=== PATIENT | female | born 1990 | race Caucasian/White ===

== ENCOUNTER 2022-08-28 18:00 | Emergency (ER) | payer BC, SELFPAY ==
[2022-08-28] VITALS (18 sets, daily range): BP systolic 109–126; BP diastolic 61–95; PULSE 53–77; RESP 12–18; TEMP 36.7; O2SAT 97–100
--- NOTE | ~2022-08-28 | CT_ITS ---
EXAMINATION: CTA chest PE protocol DATE: 08/28/2022 22:24 INDICATION: elevated d dimer, chest pain TECHNIQUE: Computed tomography angiography (CTA) of the chest was performed with 100 mL Omnipaque-350 intravenous contrast timed to evaluate the pulmonary arteries. Coronal maximum intensity projection 3D-reconstructions were created by the technologist. The dose-length product (DLP) was 217.43 mGy-cm. Automated exposure control and iterative reconstruction technique were employed. COMPARISON: X-ray chest, same date. FINDINGS: Lung parenchyma and airways: Clear. Pleura: Unremarkable. Thoracic inlet, axillae and chest wall: Unremarkable. Thoracic aorta: Normal. Mediastinum: Normal. Heart and pericardium: Normal. Coronary artery calcifications: None. Upper abdomen: No significant finding. Bones: No acute osseous finding. Pulmonary arteries: Study quality: Adequate. No pulmonary emboli detected. IMPRESSION: No CT evidence of acute pulmonary embolus. No acute thoracic process detected. Reviewed, dictated and finalized at location K.
--- NOTE | ~2022-08-28 | XR_ITS ---
EXAMINATION: XR chest 2V Exam Date/Time: 08/28/2022 18:35 CDT HISTORY: chest/breast pain LEFT SIDED X 1 WEEK Comparison: None. RESULT: Lines, tubes, and devices: None. Lungs and pleura: Clear. Cardiomediastinal silhouette: Unremarkable. Other: No acute osseous or upper abdominal finding. IMPRESSION: No acute cardiopulmonary process. Reviewed, dictated and finalized at location K.
--- NOTE | 2022-08-28 18:01 | ECG_ITS ---
Measurements Intervals [place] Rate: 66 P: 59 GA: 165 QRS: 45 QRSD: 85 T: 22 QT: 378 QTc: 398 Interpretive Statements SINUS RHYTHM POSSIBLE LEFT ATRIAL ENLARGEMENT [-0.1mV P WAVE IN V1/V2] NO PREVIOUS ECG AVAILABLE FOR COMPARISON Electronically Signed On 08-29-2022 9:08:24 CDT by Melvi Delgadillo M.D.
[2022-08-28 18:23] LABS: Basophils Absolute Auto 0.1 K/mm3 (0.0-0.1); Basophils Percent Auto 0.7 % (0.2-1.2); Eosinophils Absolute Auto 0.2 K/mm3 (0-0.3); Eosinophils Percent Auto 2.2 % (0-4.4); Hemoglobin 12.7 g/dL (12.0-15.0); Immature Granulocyte Absolute 0.02 K/mm3 (0.00-0.031); Immature Granulocyte Percent A 0.3 % (0-0.5); Lymphocytes Absolute Auto 2.96 K/mm3 (0.9-3.2); Lymphocytes Percent Auto 38.8 % (18.3-44.2); Mean Corpuscular HGB Conc 33.4 g/dl (32-36); Mean Corpuscular Volume 95.7 fl (80-100); Mean Platelet Volume 9.9 fl (7.4-10.4); Monocytes Absolute Auto 0.5 K/mm3 (0.1-0.6); Monocytes Percent Auto 6.7 % (2.6-8.5); Neutrophils Absolute Auto 3.9 K/mm3 (1.3-6.7); Neutrophils Percent Auto 51.3 % (45.5-73.1); Platelet Count Result 238 k/mm3 (150-375); Red Blood Count 3.97 M/mm3 (4.2-5.4); Red Cell Distribution Width 12.3 % (11.5-14.5); White Blood Count 7.6 K/mm3 (4.5-10.0)
[2022-08-28 18:42] LABS: Alanine Aminotransferase 69 U/L (6-35); Albumin Level 4.3 g/dL (3.5-5.1); Alkaline Phosphatase 71 U/L (38-126); Anion Gap 6 mmol/L (8-16); Aspartate Amino Transferase 60 U/L (14-36); Bilirubin,Total 0.4 mg/dL (0.2-1.3); Blood Urea Nitrogen 16 mg/dL (7-17); Calcium 8.9 mg/dL (8.4-10.2); Carbon Dioxide 32 mmol/L (22-30); Chloride 101 mmol/L (98-107); Estimated CRCL calculation 82 ml/min; Estimated Glomerular Filt Rate > 60; Glucose 108 mg/dL (65-110); Lipase 80 U/L (23-300); Potassium 3.7 mmol/L (3.4-5.0); Sodium 139 mmol/L (137-145)
[2022-08-28 18:43] LABS: Partial Thromboplastin Time 31.9 SECONDS (22.3-36.8); Prothrombin Time 13.6 Seconds (11.1-14.7)
[2022-08-28 18:53] LABS: Troponin I < 0.012 ng/mL (0.000-0.034)
--- NOTE | 2022-08-28 21:16 | ED.CHESTPAIN ---
HPI - Chest Pain General Chief Complaint: Chest Pain Stated Complaint: left breast/chest pain Time Seen by Provider: 08/28/22 20:37 History of Present Illness HPI narrative: 31 y/o F reports for left sided chest pain and breast pain x1 week. Patient states the pain is located in her left lower breast/anterior chest wall and is dull in nature. Patient states nothing makes the pain better. The pain was worse when she leaned forward today. She states she is concerned for breast cancer considering she has a positive family medical history. Reports the pain does not radiate anywhere. She denies fever, bodyaches, chills, shortness of breath, cough or congestion, abdominal pain, indigestion, urinary complaints, nipple drainage. She is not . She has not taken anything for pain. She does report a history of costochondritis approximately 7 years ago. Related Data Home Medications Medication Instructions Recorded Confirmed L norgest/E estradiol-E estrad 1 tablet PO DAILY 06/01/20 01/31/22 0.15 mg-30 mcg (84)/10 mcg(7) tabs,3mos (Seasonique) multivitamin 1 tablet PO DAILY 06/01/20 01/31/22 cetirizine 10 mg tablet (Zyrtec) 10 mg PO DAILY 01/31/22 01/31/22 mometasone 50 mcg/actuation nasal 2 spray intranasal DAILY PRN 01/31/22 01/31/22 spray (Nasonex) Allergies Allergy/AdvReac Type Severity Reaction Status Date / Time Sulfa (Sulfonamide Allergy Unknown Rash Verified 08/28/22 20:27 Antibiotics) SULFA Allergy Rash Uncoded 01/31/22 08:50 Review of Systems Review of Systems: CONSTITUTIONAL: Denies fever, chills EYES: Denies visual changes, redness, or discharge. ENT: Denies rhinorrhea, congestion, sore throat, or otalgia. CARDIOVASCULAR: See HPI RESPIRATORY: Denies cough or dyspnea. GASTROINTESTINAL: Denies abdominal pain, nausea, vomiting, or diarrhea. GENITOURINARY: Denies dysuria or hematuria. SKIN: Denies rash or itching. MUSCULOSKELETAL: Denies back pain, joint pain, or myalgia. NEUROLOGIC: Denies headache, numbness, dizziness, or weakness. PSYCHIATRIC: Denies anxiety or depression. [facility] Past Medical History Medical History Anxiety with depression BMI 26.0-26.9,adult Retinal detachment Seasonal allergies Surgical History Surgical History Extrusion of scleral buckle Family History Family History Mother Family history of malignant neoplasm of breast in first degree relative Social History Social History Smoking status: Never smoker Alcohol intake: current Lack of Transportation: No Lack of Food: Never True Current Housing: I Have Housing Concerned About Future Housing: No Difficulty Paying Gas/Electric Bills: No Difficulty Paying for Meds: No Currently Unemployed: No Education: Master's Degree or Higher Difficulty w/ Childcare or Family Care: No Living arrangements: with family Exam Narrative: GENERAL: Well-appearing, in no acute distress. HEAD: Normocephalic NECK: Supple. CHEST: No respiratory distress. Clear to auscultation, no adventitious breath sounds. Bilateral breasts without nipple retraction, discharge, no lumps or overlying skin changes. Point tenderness with palpation to the left sternal border/inferior medial breast. HEART: Regular rate and rhythm. No murmur heard. Normal peripheral pulses. ABDOMEN: Soft, nontender, normal active bowel sounds. EXTREMITIES: Normal range of motion. No edema. SKIN: Warm, dry, no rash. NEURO: No focal deficits. Alert and oriented x3. PSYCH: Normal mood and affect. Course Course Emergency Course: Ultrasound of breast ordered due to potential etiology of chest pain originating from breast. There is not a breast radiologist present to read ultrasounds obtained tonight. Discusse
[2022-08-28] MEDS: IBUPROFEN 600 MG TABLET PO (21:38)
[2022-08-28 21:51] LABS: D Dimer 0.49 ug/mL (<0.48)
== END 2022-08-28 23:03 | disposition home or self-care (01) ==
PROVIDERS: Emergency Medicine; Emergency Provider Physician Assistant; PCP Family Medicine
DX: R07.89 Other chest pain (principal); R94.31 Abnormal electrocardiogram [ECG] [EKG]
CPT/HCPCS: 36415; 71046; 71275; 80053; 81025; 83690; 84484; 85025; 85380; 85610; 85730; 93005; 99284; A9270; Q9967